=== PATIENT | female | born 1950 | race Caucasian/White ===

== ENCOUNTER 2021-08-17 09:35 | Emergency (ER) | payer MEDICARE, SELFPAY ==
[2021-08-17 09:37] VITALS: BP 162/71; PULSE 80; RESP 17; TEMP 36.6; O2SAT 97; BMI 41.3
--- NOTE | 2021-08-17 09:54 | EDS_ITS ---
HPI History of Present Illness Chief Complaint: Rash Informant: patient Narrative Narrative: 7-year-old female presenting to the emergency room for the evaluation of a rash on her neck. Patient states the rash showed up more than 2 days ago and is painful. She notes it is only on the left side of her neck and extends back by her ear. She denies any visual changes. She notes a history of lupus and is on Humira and methotrexate. [facility] Medical History Diabetes Fibromyalgia Lupus Home Medications Humira 07/25/13 [History Last Taken Unknown] Methotrexate 07/25/13 [History Last Taken Unknown] hydrocodone-acetaminophen [Vicodin 5-300 mg Tablet] 1 - 2 tab PO Q4H PRN PRN #20 tab 07/25/13 [Rx Last Taken Unknown] levothyroxine 25 mcg PO DAILY 07/25/13 [History Last Taken Unknown] lisinopril 20 mg PO DAILY 07/25/13 [History Last Taken Unknown] metformin 1,000 mg PO BIDCM 07/25/13 [History Last Taken Unknown] pioglitazone 30 mg PO DAILY 07/25/13 [History Last Taken Unknown] sitagliptin [Januvia] 50 mg PO DAILY 07/25/13 [History Last Taken Unknown] hydrocodone-acetaminophen 1 tab PO Q6H PRN PRN 3 Days #12 tablet 08/17/21 [Rx Last Taken Unknown] prednisone 60 mg PO DAILY #15 tablet 08/17/21 [Rx Last Taken Unknown] valacyclovir 1,000 mg PO TID 7 Days #21 tab 08/17/21 [Rx Last Taken Unknown] Allergy/AdvReac Type Severity Reaction Status Date / Time Sulfa (Sulfonamide Allergy Rash Verified 08/17/21 09:36 Antibiotics) Social History (Updated 08/17/21 @ 09:[address] Bethel Mendoza DO) Smoking Status: Never smoker substance use type: does not use ROS ROS ED Constitutional Constitutional ED: Denies chills, fever(s) or weight loss Eyes Eyes: Denies change in vision or diplopia ENT ENT ED: Denies ear pain, rhinorrhea or sore throat Cardiovascular Cardiovascular: Denies chest pain, orthopnea, palpitations or racing heartbeat Respiratory/Chest Respiratory/Chest: Denies cough, dyspnea or orthopnea Gastrointestinal Gastrointestinal: Denies abdominal pain, diarrhea, nausea or vomiting Genitourinary Genitourinary ED: Denies dysuria, hematuria or urinary frequency Musculoskeletal Musculoskeletal: Denies arthralgias or myalgias Integumentary Reports rash; Denies abscess Neurologic Neurologic: Denies headache(s) or weakness Psychiatric Psychiatric: Denies anxiety, depression, suicidal ideation or suicidal thoughts Endocrine Endocrinology: Denies polydipsia, polyphagia or polyuria Allergic/Immunologic Allergic/Immunologic ED: Denies mouth swelling, tongue swelling or urticaria EXAM Physical Exam Const Vital Signs: 08/17/21 09:37 Temperature 97.8 F Temperature Source Temporal Pulse Rate 80 Respiratory Rate 17 Blood Pressure 162/71 H Blood Pressure Mean 101 Pulse Ox 97 Oxygen Delivery Method Room Air Positive well nourished and well developed General Appearance ED: well developed HEENT Reports normocephalic, head/scalp atraumatic, TM's clear and moist mucous membranes Negative for trauma Tympanic Membrane ED: Yes TM's clear Eyes PERRL and EOMs intact bilaterally Neck no lymphadenopathy, supple and no JVD Resp normal respiratory effort and clear to auscultation bilaterally Cardio regular rate, regular rhythm and no murmurs GI normal to inspection, nondistended, normoactive bowel sounds and non-tender Palpation: soft Back/Spine no CVA tenderness and normal ROM Extremity normal to inspection General Extremety ED: Negative for edema General Extremity: Negative for edema Neuro oriented x3 and CN's II-XII intact bilaterally Sensorium / Orientation: alert Motor Exam: strength 5/5 throughout Psych mental status grossly normal Mood & Affect: Negative for depressed or tearful Skin no wounds Skin Narrative: There is a vesicular rash with discrete lesions left side of the neck that does not cross midline. Extends to the posterior auricular area. I do not see any lesions in the ear canal or tympanic membrane. MDM MDM MDM Narrative Medical decision making narrative: Case was discussed with infectious diseases Dr. Arredondo. It is felt that because we are catching this early and she is otherwise well-appearing we can start her on the outpatient medicines. If she is worsening she needs to return to the hospital. Discharge Plan Triage Chief Complaint: Rash ED Provider: Bethel Mendoza Dx/Rx/DC Orders Clinical Impression: Shingles Instructions: Shingles (Herpes Zoster) Prescriptions: New hydrocodone-acetaminophen [hydrocodone-acetaminophen] 1 TABLET tablet 1 tab PO Q6H PRN PRN (Reason: Pain) 3 Days Qty: 12 RF: 0 prednisone 20 MG tablet 60 mg PO DAILY Qty: 15 RF: 0 valacyclovir 1 gram tablet 1,000 mg PO TID 7 Days Qty: 21 RF: 0 No Action lisinopril 20 MG tablet 20 mg PO DAILY RF: 0 levothyroxine 25 MCG tablet 25 mcg PO DAILY RF: 0 metformin 1,000 MG tablet 1,000 mg PO BIDCM RF: 0 pioglitazone 30 MG tablet 30 mg PO DAILY RF: 0 sitagliptin [Januvia] 50 MG tablet 50 mg PO DAILY RF: 0 Humira RF: 0 Methotrexate RF: 0 hydrocodone-acetaminophen [Vicodin] 1 EACH tablet 1 - 2 tab PO Q4H PRN PRN (Reason: Pain) Qty: 20 RF: 0 Primary Care Provider: Markell Alvarado Referrals: Markell Alvarado MD [Primary Care Provider] - As Needed Disposition Disposition: Home, Self Care
[2021-08-17 10:29] VITALS: RESP 16
== END 2021-08-17 10:31 | disposition home or self-care (01) ==
PROVIDERS: Emergency Provider Emergency Medicine; PCP Family Medicine; Visit Provider Emergency Medicine
DX: B02.9 Zoster without complications (principal); M32.9 Systemic lupus erythematosus, unspecified; E11.9 Type 2 diabetes mellitus without complications; M79.7 Fibromyalgia; Z79.899 Other long term (current) drug therapy; Z79.84 Long term (current) use of oral hypoglycemic drugs
CPT/HCPCS: 99282